=== PATIENT | male | born 1985 | race Two or more races ===

== ENCOUNTER 2019-07-13 12:15 | Emergency (ER) | payer MEDICAID ==
[~2019-07-13] VITALS: Ht 170.2 cm; Wt 61.2 kg
[2019-07-13 12:57] VITALS: BP 123/80
[2019-07-13] MEDS ORDERED: SILVER SULFADIAZINE CREAM 25 GM TUBE ONE (13:23)
[2019-07-13] MEDS ORDERED: TDAP [DIPH/PERTUSSIS/TET] 0.5 ML VIAL IM ONE ×2 (13:27→13:30)
[2019-07-13] MEDS ORDERED: SILVER SULFADIAZINE CREAM 25 GM TUBE TP ONE (13:30)
--- NOTE | 2019-07-13 13:38 | NUR ---
Patient discharged to in stable condition. Written and verbal after care instructions given. Patient verbalizes understanding of instruction. Advised to f/u with burn center.
== END 2019-07-13 13:54 | disposition home or self-care (01) ==
LOC: ER 12:15
DX: T23.221A Burn of second degree of single right finger (nail) except thumb, initial encounter (principal); F12.90 Cannabis use, unspecified, uncomplicated; Z98.890 Other specified postprocedural states; X19.XXXA Contact with other heat and hot substances, initial encounter; Y93.89 Activity, other specified; Y92.89 Other specified places as the place of occurrence of the external cause; Y99.8 Other external cause status
CPT/HCPCS: 90715

== ENCOUNTER 2020-02-06 16:02 | Emergency (ER) | payer MEDICAID ==
[~2020-02-06] VITALS: Ht 170.2 cm; Wt 77.6 kg
--- NOTE | 2020-02-06 16:14 | NUR ---
pt came to ER with c/o LFA open wound due to spider bite and right elbow and wrist pain s/p slipped and fall. no KO, no visible trauma on right elbow such as discolorations, no swelling. awaiting for MD orozco
[2020-02-06] MEDS ORDERED: HYDROCODONE/APAP 5/325MG TABLET PO ONE (16:30)
[2020-02-06] MEDS ORDERED: HYDROCODONE/APAP 5/325MG TABLET ONE (16:32)
[2020-02-06 17:30] VITALS: BP 121/72
== END 2020-02-06 17:30 | disposition home or self-care (01) ==
LOC: ER 16:04
DX: S50.862A Insect bite (nonvenomous) of left forearm, initial encounter (principal); M79.631 Pain in right forearm; Z98.890 Other specified postprocedural states; W01.0XXA Fall on same level from slipping, tripping and stumbling without subsequent striking against object, initial encounter; W57.XXXA Bitten or stung by nonvenomous insect and other nonvenomous arthropods, initial encounter; Y93.89 Activity, other specified; Y92.89 Other specified places as the place of occurrence of the external cause; Y99.8 Other external cause status
CPT/HCPCS: 73090-TC